=== PATIENT | female | born 1955 | race Caucasian/White ===

== ENCOUNTER 2016-08-28 15:55 | Emergency (ER) | payer OTHER ==
[2016-08-28] MEDS ORDERED: NACL 0.9% IR ONE (19:28)
[2016-08-28] MEDS ORDERED: BOOSTRIX IM ONE (19:28)
[2016-08-28] MEDS ORDERED: MARCAINE 0.5% INFILTRATI ONE (19:28)
--- NOTE | 2016-08-28 20:19 | Emergency Department Report ---
Entered by JERI COSME, acting as scribe for MICHELE HATFIELD PA. ED Laceration HPI - HPI Chief Complaint: Wound/Laceration Stated Complaint: FINGER LAC Time Seen by Provider: 08/28/16 19:07 Occurred When: Today Location: Upper Extremity (right second digit laceration) Tetanus Status: Not up to Date Laceration Symptoms: Yes Pain (5/10 in severity), No Foreign Body Sensation, No Numbness, No Weakness Other History: 61 year old female presents to the ED for evaluation of laceration and pain to second right digit that occurred today at 14:30. Per patient, she cut her hand on bathtub faucet. She rates her pain as a 5/10 in severity. Patient applied dressing to wound prior to arrival but did not take any medications. Tetanus immunization is not up to date. Denies numbness, tingling, and radiation of pain up arm. ED Review of Systems ROS: Stated complaint: FINGER LAC Other details as noted in HPI Comment: All other systems reviewed and negative Constitutional: denies: chills, fever Respiratory: no symptoms reported Cardiovascular: denies: chest pain, palpitations, edema, syncope Gastrointestinal: nausea. denies: vomiting Musculoskeletal: arthralgia, other (laceration and pain to proximal phalynx of right second digit) Skin: other (laceration) Neurological: denies: weakness, numbness, paresthesias ED Past Medical Hx - Past Medical History Previous Medical History?: No - Surgical History Past Surgical History?: No - Family History Family history: no significant - Social History Smoking Status: Never Smoker Substance Use Type: None - Medications Home Medications: Home Medications Medication Instructions Recorded Confirmed Last Taken Type Cephalexin [Keflex] 500 mg PO Q12HR #10 cap 08/28/16 Unknown Rx Ibuprofen [Motrin] 600 mg PO Q8H PRN #15 tablet 08/28/16 Unknown Rx Laceration Physical Exam - Exam General: Vital signs noted. No distress. Alert and acting appropriately. GENERAL: The patient is well-developed and well-nourished. Patient is in NAD. HEAD: Normocephalic. Atraumatic. EYES: Extraocular motions are intact, PERRL. CHEST/LUNGS: Clear to auscultation throughout. HEART/CARDIOVASCULAR: Regular rate and rhythm. Normal S1/S2. No murmurs, rubs or gallops. EXTREMITIES: Full range of motion to bilateral upper and lower extremities. Peripheral pulses are intact. NEURO: Alert and oriented x 3. Normal gait. Symmetrical strength and sensation. Wound Length (cm): 1 Laceration Location: Other (superfication laceration to right 2nd digit at proximal phalynx. Laceration is irregular and avlused.) Laceration Exam: Yes Normal Distal CMS, No Foreign Body, No Exposed Tendon, Vessel, or Nerve, No Tendon Injury ED Course Vital Signs 08/28/16 16:14 Temperature 98.1 F Pulse Rate 75 Respiratory 18 Rate Blood Pressure 190/89 O2 Sat by Pulse 100 Oximetry - Reevaluation(s) Reevaluation #1: 08/28/16 20:12 Patient received tetanus vaccine in emergency room. See procedure note for laceration repair - Laceration /Wound Repair Right Proximal Finger Wound Location: upper extremity (right proximal second) Wound Length (cm): 1 Wound's Depth, Shape: superficial, irregular Wound Explored: clean Irrigated w/ Saline (ccs): 500 Betadine Prep?: Yes Volume Anesthetic (ccs): 5 Wound Debrided: moderate Wound Repaired With: sutures Suture Size/Type: 4:0 (Ethilon) Number of Sutures: 7 Layer Closure?: No Sterile Dressing Applied?: Yes ED Medical Decision Making - Medical Decision Making ED course: Patient here for laceration repair to right second digit. See procedure note for details on care. Patient given Boostrix 0.5 ml IM to update tetanus . She was understanding of discharge diagnosis and treatment plan. Patient to return in 7 days to have stitches removal. Patient discharged home with prescription for Keflex and Motrin. Critical care attestation.: If time is entered above; I have spent that time in minutes in the direct care of this critically ill patient, excluding procedure time. ED Disposition Clinical Impression: Laceration of right index finger, Arthralgia of right hand Disposition: DISCHARGED TO HOME OR SELFCARE Is pt being admited?: No Does the pt Need Aspirin: No Condition: Stable Instructions: Suture Care (ED), Finger Laceration (ED) Additional Instructions: Please distress and in 48 hours. keep Affected area clean and dry. Take antibiotic as prescribed. return to emergency room in 7 days to have sutures removed. Afford physical activity to affected area for 72 hours. Prescriptions: Cephalexin [Keflex] 500 mg PO Q12HR #10 cap Ibuprofen [Motrin] 600 mg PO Q8H PRN #15 tablet PRN Reason: Pain Referrals: PRIMARY CARE,MD [Primary Care Provider] - 3-5 Days Forms: Accompanied Note, Work/School Release Form(ED) This documentation as recorded by the BA mcgowan JASMINE,accurately reflects the service I personally performed and the decisions made by me,MICHELE HATFIELD PA.
[2016-08-28 20:32] VITALS: BP 178/97
== END 2016-08-28 20:33 | disposition home or self-care (01) ==
LOC: ED 15:55
DX: S61.210A Laceration without foreign body of right index finger without damage to nail, initial encounter (principal); M79.641 Pain in right hand; W45.8XXA Other foreign body or object entering through skin, initial encounter; Y93.89 Activity, other specified; Y99.9 Unspecified external cause status; Y92.89 Other specified places as the place of occurrence of the external cause
CPT/HCPCS: 90471; 90715

== ENCOUNTER 2016-12-20 10:04 | Emergency (ER) | payer OTHER ==
[2016-12-20 10:27] VITALS: BP 173/99
[2016-12-20] MEDS ORDERED: MOTRIN PO ONE (10:59)
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
--- NOTE | 2016-12-20 12:28 | XRay Report ---
LEFT KNEE, 3 views: History: Left knee pain. The bony architecture is intact without evidence of fracture or dislocation. Mild degenerative changes are noted in the patellofemoral space. No significant soft tissue abnormality is seen. IMPRESSION: Mild degenerative changes. No acute process noted.
== END 2016-12-20 12:41 | disposition home or self-care (01) ==
LOC: ED 10:04
DX: S39.012A Strain of muscle, fascia and tendon of lower back, initial encounter (principal); S86.912A Strain of unspecified muscle(s) and tendon(s) at lower leg level, left leg, initial encounter; I10 Essential (primary) hypertension; C81.90 Hodgkin lymphoma, unspecified, unspecified site; D57.3 Sickle-cell trait; V89.2XXA Person injured in unspecified motor-vehicle accident, traffic, initial encounter; Y93.89 Activity, other specified; Y99.8 Other external cause status; Y92.488 Other paved roadways as the place of occurrence of the external cause

== ENCOUNTER 2017-03-18 22:09 | Emergency (ER) | payer OTHER ==
--- NOTE | 2017-03-19 01:11 | XRay Report ---
FINAL REPORT EXAM: XR ANKLE 2V LT HISTORY: LEFT ANKLE PAIN COMPARISON: None available. FINDINGS: Two views of the left foot obtained. Prominent soft tissue swelling along the lateral malleolus. Ankle mortise is preserved. No acute fracture dislocation. Small plantar calcaneal spur. IMPRESSION: No acute bony abnormality. Prominent soft tissue swelling.
--- NOTE | 2017-03-19 03:44 | Emergency Department Report ---
ED Lower Extremity HPI - General Chief Complaint: Fall Stated Complaint: LT ANKLE PAIN Time Seen by Provider: 03/19/17 03:09 Source: patient Mode of arrival: Ambulatory Limitations: No Limitations - History of Present Illness Initial Comments: 62-year-old female past medical history hypertension presents with complaint of left ankle pain. Patient states that while walking down steps in her home she slipped 2 steps and landed awkwardly on left ankle. Slight inversion injury. Patient is ambulating but states that her left ankle is aching. Ambulating without assistance. Patient denies any other injuries. Visibly walking without assistance. Complaint: ankle injury (left ankle) -: This evening Injury: Ankle: Left Type of Injury: inversion Place: home Severity: moderate Severity scale (0 -10): 6 Improves With: immobilization Worsens With: weight bearing Associated Symptoms: snap/pop sensation, swelling, ambulatory - Related Data Previous Rx's Medication Instructions Recorded Last Taken Type Cephalexin [Keflex] 500 mg PO Q12HR #10 cap 08/28/16 Unknown Rx Ibuprofen [Motrin] 600 mg PO Q8H PRN #15 tablet 08/28/16 Unknown Rx Cyclobenzaprine [Flexeril] 10 mg PO TID PRN #15 tablet 12/20/16 Unknown Rx Ibuprofen [Motrin 600 MG tab] 600 mg PO Q8H PRN #20 tablet 12/20/16 Unknown Rx Ibuprofen [Motrin] 800 mg PO Q8HR PRN #30 tablet 03/19/17 Unknown Rx Allergies Allergy/AdvReac Type Severity Reaction Status Date / Time No Known Allergies Allergy Unverified 08/28/16 16:14 ED Review of Systems ROS: Stated complaint: LT ANKLE PAIN Other details as noted in HPI Constitutional: denies: chills, fever Eyes: denies: eye pain, eye discharge, vision change ENT: denies: ear pain, throat pain Respiratory: denies: cough, shortness of breath, wheezing Cardiovascular: denies: chest pain, palpitations Endocrine: no symptoms reported Gastrointestinal: denies: abdominal pain, nausea, diarrhea Genitourinary: denies: urgency, dysuria, discharge Musculoskeletal: arthralgia. denies: back pain, joint swelling Skin: denies: rash, lesions Neurological: denies: headache, weakness, paresthesias Psychiatric: denies: anxiety, depression Hematological/Lymphatic: denies: easy bleeding, easy bruising ED Past Medical Hx - Past Medical History Previous Medical History?: Yes Hx Hypertension: Yes Additional medical history: Sickle Cell Trait - Surgical History Past Surgical History?: No - Social History Smoking Status: Never Smoker Substance Use Type: None - Medications Home Medications: Home Medications Medication Instructions Recorded Confirmed Last Taken Type Cephalexin [Keflex] 500 mg PO Q12HR #10 cap 08/28/16 Unknown Rx Ibuprofen [Motrin] 600 mg PO Q8H PRN #15 tablet 08/28/16 Unknown Rx Cyclobenzaprine [Flexeril] 10 mg PO TID PRN #15 tablet 12/20/16 Unknown Rx Ibuprofen [Motrin 600 MG tab] 600 mg PO Q8H PRN #20 tablet 12/20/16 Unknown Rx Ibuprofen [Motrin] 800 mg PO Q8HR PRN #30 tablet 03/19/17 Unknown Rx ED Physical Exam - General Limitations: No Limitations General appearance: alert, in no apparent distress - Head Head exam: Present: atraumatic, normocephalic - Eye Eye exam: Present: normal appearance, PERRL, EOMI - ENT ENT exam: Present: mucous membranes moist - Neck Neck exam: Present: normal inspection - Respiratory Respiratory exam: Present: normal lung sounds bilaterally. Absent: respiratory distress - Cardiovascular Cardiovascular Exam: Present: regular rate, normal rhythm. Absent: systolic murmur, diastolic murmur, rubs, gallop - GI/Abdominal GI/Abdominal exam: Present: soft, normal bowel sounds - Extremities Exam Extremities exam: Present: normal inspection - Expanded Lower Extremity Exam Left Hip exam: Present: normal inspection, full ROM Upper Leg exam: Present: normal inspection, full ROM Knee exam: Present: normal inspection, full ROM Lower Leg exam: Present: tenderness, swelling Ankle exam: Present: tenderness, swelling Foot/Toe exam: Present: normal inspection, full ROM (NO pain at base of 5th metatarsal on palpation) Neuro vascular tendon exam: Present: no vascular compromise (strong distal dorsalis pedis and posteriro tibial pulses) Gait: Positive: antalgic 1 - slight swellign here - Back Exam Back exam: Present: normal inspection - Neurological Exam Neurological exam: Present: alert, oriented X3, CN II-XII intact, abnormal gait (antalgic gait) - Psychiatric Psychiatric exam: Present: normal affect, normal mood - Skin Skin exam: Present: warm, dry, intact, normal color. Absent: rash ED Course Vital Signs 03/18/17 23:20 Temperature 97.7 F Pulse Rate 93 H Respiratory 18 Rate Blood Pressure 165/76 O2 Sat by Pulse 100 Oximetry ED Lower Extremity MDM - Medical Decision Making A/P: Left ankle sprain 1-x-ray shows no fracture 0-[id number], Arya wrap, crutches, nonweightbearing for now, RICE therapy, Motrin when necessary 3-follow-up with orthopedics. I explained to patient that she can begin to bear weight after 3-5 days slowly but should use crutches for now for ambulation assistance Critical care attestation.: If time is entered above; I have spent that time in minutes in the direct care of this critically ill patient, excluding procedure time. ED Disposition Clinical Impression: Left ankle sprain Qualifiers: Encounter type: initial encounter Involved ligament of ankle: tibiofibular ligament Qualified Code(s): S93.432A - Sprain of tibiofibular ligament of left ankle, initial encounter Disposition: TO HOME OR SELFCARE Is pt being admited?: No Does the pt Need Aspirin: No Condition: Stable Instructions: Ankle Sprain (ED), Ankle Stirrup Splint (ED), RICE Therapy (ED), Crutch Instructions (ED) Prescriptions: Ibuprofen [Motrin] 800 mg PO Q8HR PRN #30 tablet PRN Reason: Pain Referrals: JAYDA DURANT MD [Staff Physician] - 3-5 Days Forms: Work/School Release Form(ED), Accompanied Note Time of Disposition: 03:48
[2017-03-19 04:31] VITALS: BP 168/84
== END 2017-03-19 04:10 | disposition home or self-care (01) ==
LOC: ED 22:09
DX: S93.432A Sprain of tibiofibular ligament of left ankle, initial encounter (principal); I10 Essential (primary) hypertension; W10.9XXA Fall (on) (from) unspecified stairs and steps, initial encounter; Y93.9 Activity, unspecified; Y92.9 Unspecified place or not applicable; Y99.9 Unspecified external cause status